=== PATIENT | male | born 2005 | race Caucasian/White ===

== ENCOUNTER 2023-10-29 21:50 | Outpatient (CLI) | payer OTHER, SELFPAY | END 2023-10-29 21:51 | disposition home or self-care (01) | PROVIDERS: Visit Provider Emergency Medicine | DX: T14.90XA Injury, unspecified, initial encounter (principal); V48.0XXA Car driver injured in noncollision transport accident in nontraffic accident, initial encounter; Y92.410 Unspecified street and highway as the place of occurrence of the external cause | CPT/HCPCS: A0998 ==